=== PATIENT | male | born 1985 | race Caucasian/White ===

== ENCOUNTER 2021-02-02 13:10 | Emergency (ER) | payer MEDICAID ==
[~2021-02-02] VITALS: Ht 167.6 cm; Wt 72.7 kg
[2021-02-02 13:16] VITALS: BP 119/74
[2021-02-02] MEDS ORDERED: LOSA25TA21 PO (13:22)
[2021-02-02] MEDS ORDERED: METO25 PO (13:22)
== END 2021-02-02 14:25 | disposition home or self-care (01) ==
LOC: EMS 13:14
DX: I11.0 Hypertensive heart disease with heart failure (principal); Z76.0 Encounter for issue of repeat prescription; I50.9 Heart failure, unspecified
CPT/HCPCS: 99281; Z7502